=== PATIENT | female | born 1995 | race Caucasian/White ===

== ENCOUNTER 2019-01-12 22:41 | Inpatient (IN) ==
--- NOTE | 2019-01-12 22:21 | Anesthesia Evaluation PreOp ---
Date of Encounter: 01/12/19 Time of Encounter: 22:29 - Past History Planned Operation: Del, 39wks, spont (induction felix in 5 days) Cardiac History: Denies any Significant Hx Pulmonary History: Denies Any Significant HX DENTAL THERAPIST History: Denies Any Significant HX Other Medical History: Denies Any Significant HX Anesthesia History: No Prior Anesthetic Complications, Past Anesthesia (previous epidural took 2 attempts according to patient.) Alcohol Use: none Drug use: none Medications and Allergies hydrOXYzine HCl [Hydroxyzine HCl] 25 mg PO Q6HR PRN #15 tab 04/14/16 [Rx] Promethazine [Phenergan] 25 mg RC Q8HR #20 supp.rect 11/06/16 [Rx] Dicyclomine [Bentyl] 10 mg PO QID #16 capsule 06/04/18 [Rx] Allergy/AdvReac Type Severity Reaction Status Date / Time No Known Allergies Allergy Verified 01/12/19 22:33 Anesthesia Exam - HEENT Pupil (Motor): Pupils equal Mallampati: I Teeth: Normal Oral Opening: Greater than 3 - DENTAL THERAPIST LOC: Oriented DENTAL THERAPIST Motor: Normal RUE, Normal LUE, Normal RLE, Normal LLE, Normal Face DENTAL THERAPIST Sensory: Normal: RUE, LUE, RLE, LLE, Face - Cardiac Rhythm: Regular Murmur: None - Pulmonary Breath Sounds: bilateral Clear Respiratory Effort: Symmetrical Anesthesia Assess/Plan ASA Score: 2 Level of consciousness: Cooperative, Oriented Anesthetic Plan: General, Spinal, Epidural Monitoring Plan: Standard Monitors Recovery Plan: PACU
--- NOTE | 2019-01-12 22:33 | OB/GYN History & Physical ---
Date of Encounter: 01/12/19 Time of Encounter: 22:26 Assessment and Plan (1) 39 weeks gestation of Current visit: Yes Status: Acute Pt states she is 39 weeks and 5 days, denies rupture of membranes, but does report mucus plug passage. States she has been viri since 1400 today, started with 10 minutes apart, currently approx 3 minutes apart Admit for labor and delivery (2) NST (non-stress test) reactive Current visit: Yes Status: Acute Baseline 135, accelerations present 15x15 with moderate variability. No decelerations present. (3) Spontaneous onset of labor Current visit: Yes Status: Acute Contractions started at 1400 today History of Present Illness Chief complaint: 39 weeks with contractions since 1400 HPI: Ms. Verde is a 23 year old female that reportedly had an appointment in the office today at 1100 hrs. and was found to be 2 cm dilated. The patient then went to lunch at [employer], and noted contractions starting approximately 10 minutes apart at about 1400. The patient continued to experience contractions until approximately 2200 when she noted that there were about 3 minutes apart and decided to come to the hospital. Patient states that her experience laboring is significantly different than her previous experience as she was induced with Pitocin last time. Patient is denying any vaginal discharge except for what she describes as her mucous plug which came out before she started viri this afternoon. In addition to that documented in the HPI above, the additional ROS was obtained: Constitutional: Denies fevers or chills Eyes: Denies vision changes ENMT: Denies sore throat CV: Denies chest pain Resp: Denies SOB GI: Denies vomiting or diarrhea, abd pain. Reports nausea yesterday. : Denies painful urination, hematuria. MSK: Denies recent trauma Skin: Denies new rashes Neuro: Denies new numbness or tingling or weakness She has no past medical history. She has never been hospitalized outside of giving approximately 19 months ago. She has never had any surgeries. Daily medications include Zofran, Unisom, 2 Flintstones multivitamins, 2 Tylenol, 1 Benadryl. She states this regimen really helps her avoid nausea, and that if she misses that she becomes nauseated the next day. She has no allergies to medications. Social history: Follows a regular diet, chases after her [id number] for exercise, has never used any illegal or illicit substances, denies any history of IV drug use ever. Denies any use of tobacco including cigarettes or chewing tobacco. Does have 1 caffeine-containing beverage each day. Does not work outside of the home. Last time she was sexually active was Wednesday, she states this was at the direction of her doctor who stated this may help her go into labor. OB Hx: Last child born 19 months ago, after an uncomplicated . Child was born vaginally without complication. States that she was induced during last delivery. Blood type O+ GBS negative T. Pall negative HbSAG negative HIV negative Past Med Surg Social Fam HX - Past Medical History Attestation: Yes The following information was validated with the patient. Source: patient Medical history: non-contributory Additional medical history: tachycardia Psychiatric history: no psych history - Past Surgical History Surgical History: no surgical history - Social History Smoking Status: Never smoker Smokeless Tobacco Status: No Alcohol use: none Drug use: none Occupational status: unemployed Current living situation: Home - Independent, With Family Activity Level: Independent ambulation Recent Out of Country Travel Within the Last 8 Weeks: No Exposure or Possible Exposure to Illness During Travel: No Obstetrical History - Pregnancies : 2 Para: 1 Term: 1 : 0 Ab's: 0 Livin Medications and Allergies hydrOXYzine HCl [Hydroxyzine HCl] 25 mg PO Q6HR PRN #15 tab 04/14/16 [Rx] Promethazine [Phenergan] 25 mg RC Q8HR #20 supp.rect 11/06/16 [Rx] Dicyclomine [Bentyl] 10 mg PO QID #16 capsule 06/04/18 [Rx] Allergy/AdvReac Type Severity Reaction Status Date / Time No Known Allergies Allergy Verified 01/12/19 22:33 Review of System OB - Constitutional Constitutional ROS IM: as per HPI - Nose, mouth, and throat Nose, mouth and throat: as per HPI - Cardiovascular Cardiovascular: as per HPI - Respiratory Respiratory: as per HPI - Gastrointestinal Gastrointestinal: as per HPI - Genitourinary Genitourinary: as per HPI - Muscloskeletal Musculoskeletal: as per HPI - Integumentary Integumentary: as per HPI - Neurological Nerological: as per HPI Exam - Constitutional Constitutional: well developed, well nourished, no acute distress - HEENT HEENT: Normocephaly, Mucus Membranes Moist - Neck Neck exam: full ROM, normal inspection, trachea midline - Lungs Respiratory exam: CTAB - Cardiovascular Cardiovascular exam: RRR, +S1, +S2 - Abdomen Abdomen: Present: bowel sounds normal, gravid, non tender - Extremities Extremities exam: full ROM, normal capillary refill, pedal edema - Vagina Vagina: Present: normal moisture - Cervix Dilation: 5 - Uterus Uterus exam: Present: normal size, normal contour - Anus/Rectum Anus/Rectum: Present: normal perianal skin Results All other labs normal. - VTE Reasons for not Prescribing Prophylaxis: Treatment not Indicated - Low risk for VTE
[~2019-01-12 22:41] MED LIST: *HR* Nalbuphine 10 MG/ML AMPUL IVP PRN; Epidural Premix (fent/bupiv) 110 ML EP SCH; Famotidine 20 MG/2 ML VIAL IVP PRN; Metoclopramide 10 MG/2 ML VIAL IVP PRN; Naloxone 0.4 MG/ML INJ IVP PRN; Ondansetron 4 MG/2 ML VIAL IVP PRN; Oxytocin 20 units/ LR 1000 mL 20 UNIT/1,000 ML BAG IVC SCH; Ringers Solution, Lactated 1,000 ML IVC SCH
[2019-01-12 22:51] LABS: Basophils # 0.1 K/mcL (0.0-0.2); Basophils % 0.5 %; Eosinophils # 0.1 K/mcL (0.0-0.6); Eosinophils % 0.3 %; Hematocrit 41.5 % (35.3-44.9); Hemoglobin 14.1 g/dL (11.5-15.4); Immature Granulocytes % 2.1 % (0-4); Lymphocytes # 2.4 K/mcL (0.6-4.6); Lymphocytes % 13.6 %; Mean Corpuscular Volume 91.2 fL (83.0-100.0); Mean Platelet Volume 10.1 fL (9.4-12.4); Monocytes % 5.8 %; Neutrophils # 13.5 K/mcL (1.6-8.9); Platelet Count 198 K/mcL (140-400); Red Blood Count 4.55 M/mcL (3.82-4.97); Segmented Neutrophils % 77.7 %; White Blood Count 17.4 K/mcL (4.3-11.1)
[2019-01-12 23:00] LABS: Amphetamine Screen,Urine Negative ng/mL (Cutoff=1000); Barbiturate Screen,Urine Negative ng/mL (Cutoff=200); Benzodiazepines Screen,Urine Negative ng/mL (Cutoff=200); Cannabinoid Screen,Urine Negative ng/mL (Cutoff = 50); Cocaine Screen,Urine Negative ng/mL (Cutoff= 300); Opiate Screen,Urine Negative ng/mL (Cutoff=300); Phencyclidine Screen,Urine Negative ng/mL (Cutoff=25)
--- NOTE | 2019-01-13 03:11 | OB Labor Progress Note ---
Date of Encounter: 01/13/19 Time of Encounter: 03:09 Labor Progress Note - Subjective Subjective: Patient coping well with contractions. Requesting AROM at this time. - Vital Signs Vital Signs: WNL - Cervix Cervix: 6/90/-2 - Heart Tones Heart Tones: FHR 135 bpm, moderate variability, +15x15 accels, no decels. - [place]: 3-6 min - Interventions Interventions: SVE AROM for moderate amount of light meconium fluid. - Plan Plan: Continue expectant management. May have epidural when patient desires. Anticipate
--- NOTE | 2019-01-13 04:36 | Anesthesia Procedures ---
Date of Encounter: 01/13/19 Time of Encounter: 04:16 Procedures: Anesthesia - Epidural/Spinal Patient ID/Chart reviewed: Yes Patient examined: Yes OB Eval: Contractions: Non-stressed pattern Consent Obtained: Yes Supplemental Oxygen: None/Room Air Site Prep: Aseptic Technique, Sterile prep and drape, 0.5% Chlorhexidine/Alcohol Patient position: upright Local Anesthetic: Lidocaine 1% Amount of Local Anesthetic used: 2 Touhy Needle Gauge: 18 Touhy Needle Depth (cm): 8 Catheter Depth at Skin (cm): 13 Test Dose (1.5% Lido + Epi): Volume given (mls): 4 Test Dose Result: Negative Loading Dose: Other: 10ml from solution Loading Dose Administered: Thru Catheter Infusion Med: 0.125% Bupivacaine w/ 2 mcg/ml Fentanyl Infusion Rate (mls/hr): [address]: Tegaderm, Tape Interspace Used: L3-L4 Loss of Resistance (BRIAN): Yes (saline) Blood: No CSF: Yes (25g purposeful no inj. ) Paresthesia: No Procedure: vss though out, fhr via rn's stable.
[2019-01-13] MEDS ORDERED: *HR* Ropivacaine/PF 0.5% 20 ML VIAL ONE (04:59)
--- NOTE | 2019-01-13 05:18 | Anesthesia Progress Note ---
Date of Encounter: 01/13/19 Time of Encounter: 05:09 Anesthesia Note - Note Note: 01/13/19 05:14 pt c/o pain lower abd, level low when checked, frontal JORDAN reported, questions answered. bolus with 6ml 0.5% rop plain, vss. fhr via rn's. aseptic tech though out.
[2019-01-13 06:20] LABS: Alanine Aminotransferase 9 Units/L (7-52); Albumin 3.5 g/dL (3.5-5.7); Albumin/Globulin Ratio 1.3 (1.1-2.2); Alkaline Phosphatase 140 Units/L (34-104); Aspartate Amino Transferase 12 Units/L (13-39); BUN/Creatinine Ratio 14 (6-26); Bilirubin,Total 0.4 mg/dL (0.3-1.0); Blood Urea Nitrogen 6 mg/dL (6-20); Calcium 8.9 mg/dL (8.6-10.3); Carbon Dioxide 21 mEq/L (23-29); Chloride 105 mEq/L (98-107); Globulin 2.6 g/dL (2.4-3.5); Glucose 87 mg/dL (70-105); Magnesium 1.6 mg/dL (1.6-2.6); Osmolality,Calculated 281 (280-300); Potassium 3.5 mEq/L (3.5-5.1); Sodium 137 mEq/L (136-145); Total Protein 6.1 g/dL (6.4-8.9); eGFR For African Americans > 60 (> 60); eGFR For Non-African Americans > 60 (> 60)
--- NOTE | 2019-01-13 10:07 | Anesthesia Progress Note ---
Date of Encounter: 01/13/19 Time of Encounter: 10:05 Anesthesia Note - Note Note: 01/13/19 10:05 bolus dose ropivacaine 0.2% 6cc rate increase to 13 for L sided pain
[2019-01-13] MEDS ORDERED: Rho Immune Globulin 1,500 UNIT SYRINGE IM PRN ×2 (11:41→13:44)
[2019-01-13] MEDS ORDERED: Measles/Mumps/Rubella Vacc 0.5 ML VIAL SQ PRN ×2 (11:41→13:44)
[2019-01-13] MEDS ORDERED: Ibuprofen 600 MG TABLET PO PRN ×2 (11:41→13:44)
[2019-01-13] MEDS ORDERED: Lanolin 7 G OINT...G. TP PRN ×2 (11:41→13:44)
[2019-01-13] MEDS ORDERED: Benzocaine/Menthol 56 GM AEROSOL SPRAY TP PRN ×2 (11:41→13:44)
[2019-01-13] MEDS ORDERED: Acetaminophen 325 MG TABLET PO PRN (11:41)
[2019-01-13] MEDS ORDERED: Oxytocin 20 units/ LR 1000 mL 20 UNIT/1,000 ML BAG IVC SCH (11:45)
--- NOTE | 2019-01-13 11:49 | OB/GYN Procedure Note ---
Delivery - Delivery Date: 01/13/19 Provider: Kristi Landa Intrapartum events: meconium (Light), other(please specify) (Intrapartum maternal tachycardia) Delivery induction: none Delivery monitor: external FHT, external uterine Anesthesia: epidural Quantitated Blood Loss: 100 - (s) Infant A Delivery Date: 01/13/19 Delivery Time: 11:22 Presentation: vertex Position: MARIELENA Route of delivery: Gender: Female Viability: Viable Pounds: 8 Ounces: 11 Weight Gram: 3.95 kg at 1 minute: 8 at 5 mins: 9 Shoulder Dystocia: not encountered Specimens collected: cord blood Placenta: spontaneous Cord: 3 umbilical vessels - Repair Episiotomy: none Laceration Description: Perineal - 1st Degree (Repaired with 3-0 Monocryl in a [id number] fashion for hemostasis), Vaginal (Left sidewall repaired with 3- 0 Monocryl in [id number] fashion for hemostasis) - Complications Delivery complications: meconium (Light) Delivery comments: The patient was complete and pushing with epidural anesthesia with a spontaneous vaginal delivery with the attendance of myself and resident Dr. Lizbeth Davila D.O., of a vigorous female weighing 8 lbs. 11 oz. with Apgars of 8 at 1 minute and 9 at 5 minutes. The was placed on the maternal abdomen and handed to the nursery care team for resuscitation, bulb suctioning only. Cord was clamped and cut after pulsations ceased. Cord blood was obtained. Placenta was delivered spontaneous and intact. There was a first-degree perineal laceration which was repaired with 3-0 Monocryl in a [id number] fashion for hemostasis. There is a left vaginal sidewall laceration which was repaired with 3-0 Monocryl in a [id number] fashion for hemostasis. No other vaginal or cervical lacerations noted. Estimated loss 100 mL's. Complications none. Both mother and infant recovering in stable condition in the LDR. - Disposition Mom disposition: stable in LDR [place] disposition: stable in LDR
[2019-01-13] MEDS ORDERED: hydrOXYzine pamoate 25 MG CAPSULE PO PRN (13:44)
[2019-01-13] MEDS ORDERED: *HR* Nalbuphine 10 MG/ML AMPUL IVP PRN (13:44)
[2019-01-13] MEDS ORDERED: Ondansetron 4 MG/2 ML VIAL IVP PRN (13:44)
[2019-01-13] MEDS ORDERED: Epidural Premix (fent/bupiv) 110 ML EP SCH (13:44)
[2019-01-13] MEDS ORDERED: Famotidine 20 MG/2 ML VIAL IVP PRN (13:44)
[2019-01-13] MEDS ORDERED: Naloxone 0.4 MG/ML INJ IVP PRN (13:44)
[2019-01-13] MEDS: Acetaminophen 325 MG TABLET PO PRN (14:16)
[2019-01-14] MEDS: Acetaminophen 325 MG TABLET PO PRN (04:02)
[2019-01-14 08:27] VITALS: BP 111/76
[2019-01-14] MEDS: Ringers Solution, Lactated 1,000 ML IVC SCH ×2 (08:44→09:07)
[2019-01-14] MEDS: Oxytocin 20 units/ LR 1000 mL 20 UNIT/1,000 ML BAG IVC SCH ×2 (08:45→09:08)
[2019-01-14] MEDS ORDERED: Prenatal Vit/FA 1 EACH TABLET PO SCH ×2 (09:00)
--- NOTE | 2019-01-14 09:40 | Discharge Summary ---
Date of Encounter: 01/14/19 Time of Encounter: 09:37 - Discharge Diagnosis (1) Vaginal delivery Priority: Primary Status: Acute Comments: Patient meeting day one milestones. Pain well-controlled with prescribed medications. Voiding without difficulty, tolerating regular diet, bleeding light. No bowel movement yet. Anticipate discharge today (2) First degree perineal laceration during delivery Priority: Secondary Status: Acute Comments: Ice packs, Motrin and dermoplast as needed for discomfort. Patient declines need for Motrin prescription. (3) Breast feeding status of mother Priority: Secondary Status: Acute Comments: support as needed. Patient states she has a breast pump at home. (4) Tachycardia Priority: Secondary Status: Acute Comments: Follow-up with primary care provider as needed - Discharge Medications Prescriptions: New Acetaminophen [Tylenol] 650 mg PO Q6HR PRN tablet PRN Reason: Mild Pain Ibuprofen [Motrin] 600 mg PO Q6HR PRN tablet PRN Reason: Cramping Benzocaine/Menthol [place] [Dermoplast [place]] 1 appl TP QID PRN aerosol PRN Reason: See Comments Lanolin [Lansinoh] 1 appl TP QID PRN oint...g. PRN Reason: Pain Continued hydrOXYzine HCl [Hydroxyzine HCl] 25 mg PO Q6HR PRN #15 tab PRN Reason: Anxiety Dicyclomine [Bentyl] 10 mg PO QID #16 capsule Discontinued Promethazine [Phenergan] 25 mg RC Q8HR #20 supp.rect Home Medications: hydrOXYzine HCl [Hydroxyzine HCl] 25 mg PO Q6HR PRN #15 tab 04/14/16 [Rx] Dicyclomine [Bentyl] 10 mg PO QID #16 capsule 06/04/18 [Rx] Acetaminophen [Tylenol] 650 mg PO Q6HR PRN tablet 01/14/19 [Rx] Benzocaine/Menthol [place] [Dermoplast [place]] 1 appl TP QID PRN aerosol 01/14/19 [Rx] Ibuprofen [Motrin] 600 mg PO Q6HR PRN tablet 01/14/19 [Rx] Lanolin [Lansinoh] 1 appl TP QID PRN oint...g. 01/14/19 [Rx] Allergies/Adverse Reactions: Allergy/AdvReac Type Severity Reaction Status Date / Time No Known Allergies Allergy Verified 01/12/19 22:33 Data Procedures and tests throughout hospitalization: Laboratory Tests 01/12/19 01/12/19 01/13/19 22:35 22:35 05:50 WBC 17.4 H RBC 4.55 Hgb 14.1 Hct 41.5 MCV 91.2 MCH 31.0 MCHC 34.0 RDW 13.0 Plt Count 198 MPV 10.1 Immature Gran % 2.1 Seg Neutrophils % 77.7 Lymphocytes % 13.6 Monocytes % 5.8 Eosinophils % 0.3 Basophils % 0.5 Neutrophils # 13.5 H Lymphocytes # 2.4 Monocytes # 1.0 Eosinophils # 0.1 Basophils # 0.1 Sodium 137 Potassium 3.5 Chloride 105 Carbon Dioxide 21 L BUN 6 Creatinine 0.43 L Est GFR ( Amer) > 60 Est GFR (Non-Af Amer) > 60 BUN/Creatinine Ratio 14 Glucose 87 Calculated Osmolality 281 Calcium 8.9 Magnesium 1.6 Total Bilirubin 0.4 AST 12 L ALT 9 Alkaline Phosphatase 140 H Serum Total Protein 6.1 L Albumin 3.5 Globulin 2.6 Albumin/Globulin Ratio 1.3 Urine Opiates Screen Negative Ur Barbiturates Screen Negative Ur Phencyclidine Scrn Negative Ur Amphetamines Screen Negative U Benzodiazepines Scrn Negative Urine Cocaine Screen Negative U Marijuana (THC) Screen Negative Ur Drug Screen Interp See Below Date of admission: 01/12/19 22:41 Primary care physician: Chris Dunne Consults: 01/13/19 11:41 Consult to Cosmetic Account Coordinator [CONS] Routine Comment: Vaginal delivery, consult needed Discharging clinician: Mary Peters Anticipated date of discharge: 01/14/19 - Patient Status Disposition: Home, Self-Care Condition: Good Functional capacity at discharge: independent ambulation Overall status at discharge: patient is progressing back to baseline - Discharge Instructions Follow Up With: Chris Dunne DO [Primary Care Provider] - Dung Bauer MD [Partnered Physician] - - Diet and Activity Activity: resume usual activities as tolerated Diet: regular diet Hospital Course Reason for admission: active labor, IUP at term Delivery: Episiotomy: none Laceration: 1st degree Other procedures: none complications: none Discharge diagnosis: IUP at term delivered [place] baby: female Hospital course: Delivery Date: 01/13/19 Provider: Kristi Landa Intrapartum events: meconium (Light), other(please specify) (Intrapartum maternal tachycardia) Delivery induction: none Delivery monitor: external FHT, external uterine Anesthesia: epidural Quantitated Blood Loss: 100 - Infant (s) Infant A Infant Delivery Date: 01/13/19 Delivery Time: Presentation: vertex Position: MARIELENA Route of delivery: Gender: Female Viability: Viable Pounds: 8 Ounces: 11 Weight Gram: 3.95 kg at 1 minute: 8 at 5 mins: 9 Shoulder Dystocia: not encountered Specimens collected: cord blood Placenta: spontaneous Cord: 3 umbilical vessels - Repair Episiotomy: none Laceration Description: Perineal - 1st Degree (Repaired with 3-0 Monocryl in a [id number]-[id number] fashion for hemostasis), Vaginal (Left sidewall repaired with 3- 0 Monocryl in [id number] fashion for hemostasis) - Complications Delivery complications: meconium (Light) Delivery comments: The patient was complete and pushing with epidural anesthesia with a spontaneous vaginal delivery with the attendance of myself and resident Dr. Lizbeth Davila D.O., of a vigorous female infant weighing 8 lbs. 11 oz. with Apgars of 8 at 1 minute and 9 at 5 minutes. The was placed on the maternal abdomen and handed to the nursery care team for resuscitation, bulb suctioning only. Cord was clamped and cut after pulsations ceased. Cord blood was obtained. Placenta was delivered spontaneous and intact. There was a first-degree perineal lac eration which was repaired with 3-0 Monocryl in a [id number] fashion for hemostasis. There is a left vaginal sidewall laceration which was repaired with 3-0 Monocryl in a [id number] fashion for hemostasis. No other vaginal or cervical lacerations noted. Estimated loss 100 mL's. Complications none. Both mother and infant recovering in stable condition in the LDR. - Disposition Mom disposition: stable in LDR disposition: stable in LDR Time Attestation: Total time spent providing and/or coordinating discharge services: Time Spent: Less than 30 minutes Exam - Constitutional Vitals: Temp Pulse Resp BP Pulse Ox 97.6 F 87 16 111/76 98 01/14/19 08:26 01/14/19 08:26 01/14/19 08:26 01/14/19 08:26 01/14/19 03:55 General appearance IM: A&O X 3, pleasant, no acute distress, answers questions appropriately - Respiratory Respiratory exam: Present: CTAB - Cardiovascular Cardiovascular exam IM: Present: RRR, +S1, +S2 - GI/Abdominal GI/Abdominal exam IM: normal bowel sounds, soft - Rectal Rectal exam: deferred - External exam: normal external exam Uterine Tone: Firm Uterus Position: At Umbilicus, Midline - Extremities Exam Extremities exam IM: Present: full ROM, normal capillary refill, normal inspection, pedal edema - Neurological Exam Neurological exam: alert, normal gait, oriented X3
== END 2019-01-14 13:56 | disposition home or self-care (01) | DRG 807 ==
LOC: 1NENULAB → 1NENUOBS 01-13 14:01
PROVIDERS: ADMIT Registered Nurse; ATTEND Registered Nurse